=== PATIENT | female | born 1975 | race Caucasian/White ===

== ENCOUNTER → 2018-02-08 | Outpatient (CLI) | payer OTHER ==
[~2018-02-08] MED LIST: ATOV1TAB17 PO; CIPR-214 PO; DIPH-1 PO; DIPH0.5S4 IM; FRO2.5PT PO; IBUP-2704 PO; LEVO-85 PO; LEVO750T44 PO; ONDA4TAB PO; ONDA4TAB97 PO; PREN-123 PO; RIZA5TAB17 PO; ROBC PO; TRAM-420 PO; TRAZ50TA34 PO; TYPH1CAP7 PO; ZOLP-350 PO
--- NOTE | 2018-02-08 11:19 | RADIOLOGY IMAGING REPORT ---
FACILITY: [facility] PATIENT NAME: SARAH GARCES : [id number] MR: [id number] V: [id number] EXAM DATE: [id number] ORDERING PHYSICIAN: LYSSA NOEL TECHNOLOGIST: Tena Jacobs PROCEDURE:BILATERAL DIGITAL SCREENING MAMMOGRAM WITH CAD ASSISTED INTERPRETATION & 3D TOMOSYNTHESIS COMPARISON:None. INDICATIONS:Screening BASELINE IMPLANTS FINDINGS: There are bilateral subpectoral implants in place. There is no evidence of implant rupture or leakage. Moderately dense fibroglandular tissue is seen anterior to the implants. There is no evidence of malignant appearing mass, malignant appearing calcifications or other secondary sign of malignancy in either breast. DIAGNOSTIC CATEGORY 1--NEGATIVE. RECOMMENDATIONS: ROUTINE MAMMOGRAM AND CLINICAL EVALUATION. IMPRESSION: BIRADS 1: Negative. No significant abnormality is seen. Dictated by: Peri Carlos M.D. on 02/08/2018 at 9:17 Transcribed by: PATRICK on 02/08/2018 at 9:31 Approved by: Peri Carlos M.D. on 02/08/2018 at 11:18 [facility]
== END ==
LOC: MAMO 02:01
PROVIDERS: ATTEND Nurse Practitioner Primary Care
DX: Z12.31 Encounter for screening mammogram for malignant neoplasm of breast (principal)
CPT/HCPCS: 77063; 77067

== ENCOUNTER → 2018-06-21 | Outpatient (CLI) | payer OTHER ==
[~2018-06-21] MED LIST changes: +BUTA1CAP6 PO; +ESCI20TA38 PO
== END ==
LOC: LAB 15:03
PROVIDERS: ATTEND Nurse Practitioner Primary Care
DX: Z11.8 Encounter for screening for other infectious and parasitic diseases (principal); Z11.3 Encounter for screening for infections with a predominantly sexual mode of transmission
CPT/HCPCS: 87491; 87591